=== PATIENT | male | born 1980 | race Caucasian/White ===

== ENCOUNTER 2020-11-29 09:53 | Outpatient (CLI) | payer OTHER ==
--- NOTE | 2020-11-29 12:24 | XRAY Report ---
PROCEDURE: Hand 3 View RT INDICATIONS: SWELLING OF FINGER OF RIGHT HAND TECHNIQUE: 3 views of the hand(s) acquired. COMPARISON: None FINDINGS: Bones: No fractures or dislocations. No suspicious bony lesions. Largest bone cyst noted in the ca pitate without osseous expansion measures 1.3 x 0.8 cm. Normal bone mineralization otherwise present. No fractures. Soft tissues: No suspicious soft tissue calcifications. IMPRESSION: Large benign cyst noted in the capitate without osseous expansion may reflect aneurysmal bone cyst or degenerative subchondral cyst. No fracture or foreign body. Reviewed by: Kemar Benjamin MD on 11/29/2020 11:22 AM EUGENE Approved by: Kemar Benjamin MD on 11/29/2020 11:22 AM EUGENE Station ID: [id number]
== END 2020-11-29 09:54 | disposition home or self-care (01) ==
LOC: DI.S 09:53
PROVIDERS: ATTEND Nurse Practitioner Family
DX: M85.641 Other cyst of bone, right hand (principal)

== ENCOUNTER 2021-04-17 10:53 | Outpatient (CLI) | payer OTHER ==
--- NOTE | 2021-04-18 09:19 | CT Report ---
PROCEDURE: Abdomen/Pelvis WO INDICATIONS: LEFT FLANK PAIN TECHNIQUE: Noncontrast 5 mm thick sections acquired from the diaphragms to the symphysis. 5 mm coronal and sagi ttal reformats were then performed. For radiation dose reduction, the following was used: automated exposure control, adjustment of mA and/or kV according to patient size. COMPARISON: None. FINDINGS: Image quality: Excellent. ABDOMEN: Lung bases: Mild scars and atelectasis at lung bases. Heart size is normal. Small hiatal hernia. Solid organs: Kidneys are normal in size. No kidney stones or hydronephrosis. Liver is normal in size. There are a couple of low density nodules in liver. A 0.5 cm nodule is seen in the left hepatic lobe; a 0.8 cm nodule is seen in the right hepatic lobe. Statistically, they are incompletely evaluated on this noncontrast enhanced CT, but most likely small hepatic cysts. Spleen is normal in size. Gallbladder is normal. Pancreas is normal in contours. No adrenal nodules Peritoneum and bowel: Unenhanced bowel loops demonstrate normal wall thickness and caliber. A few c olonic diverticula are present. No diverticulitis. Appendix is normal. No free fluid or air. Nodes and vessels: No retroperitoneal or mesenteric adenopathy by size criteria. Aorta and inferior vena cava are normal in caliber. Miscellaneous: No ventral hernias. PELVIS: Genitourinary: Bladder wall thickness is normal. Miscellaneous: No inguinal hernias or adenopathy. Bones: No suspicious bony lesions. No vertebral body compression fractures. Bilateral pars defect at L5. No spondylolysis is. Mild degenerative changes in lumbar spine. IMPRESSION: 1. No acute abnormalities in abdomen or pelvis. A cause for left flank pain is not identified. No margy al stones or hydronephrosis. 2. Mild diverticulosis without diverticulitis. 3. A couple of small indeterminate hepatic hypodensities, most likely hepatic cysts. 4. Bilateral pars defect at L5. Reviewed by: Deana Spivey MD on 04/18/2021 9:17 AM PST Approved by: Deana Spivey MD on 04/18/2021 9:17 AM PST Station ID: [id number]
== END 2021-04-17 10:54 | disposition home or self-care (01) ==
LOC: DI 10:53
PROVIDERS: ATTEND Nurse Practitioner Family
DX: R10.9 Unspecified abdominal pain (principal); K57.30 Diverticulosis of large intestine without perforation or abscess without bleeding; R16.0 Hepatomegaly, not elsewhere classified; M43.06 Spondylolysis, lumbar region

== ENCOUNTER 2021-12-04 08:23 | Outpatient (CLI) | payer OTHER ==
--- NOTE | 2021-12-04 11:07 | XRAY Report ---
PROCEDURE: Lumbar Spine 2 View INDICATIONS: LOW BACK PAIN TECHNIQUE: 3 views of the lumbar spine were acquired. COMPARISON: None. FINDINGS: Bones: 5 [id number] vertebrae are present. There is normal bony alignment. No vertebral body compression fractures. No suspicious bony lesions. Multilevel anterior osteophytes are present. Par s defects of L4-5 with grade 1 anterolisthesis. Soft tissues: Overlying bowel gas pattern is normal. No suspicious soft tissue calcifications. IMPRESSION: 1. Pars defects of L5 with grade 1 anterolisthesis of L5-S1. 2. Mild anterior osteophytes. Reviewed by: Candido Nuñez on 12/04/2021 11:05 AM PDT Approved by: Candido Nuñez on 12/04/2021 11:05 AM PDT Station ID: [id number]
== END 2021-12-04 08:24 | disposition home or self-care (01) ==
LOC: DI.S 08:23
PROVIDERS: ATTEND Nurse Practitioner Family
DX: M43.17 Spondylolisthesis, lumbosacral region (principal); M47.816 Spondylosis without myelopathy or radiculopathy, lumbar region